=== PATIENT | female | born 1945 | race Caucasian/White ===

== ENCOUNTER → 2019-07-21 08:55 | Outpatient (BNVA) | payer MEDICARE, OTHER, SELFPAY | PROVIDERS: Family Provider Family Medicine; PCP Family Medicine; Visit Provider Otolaryngology | DX: H92.01 Otalgia, right ear (principal); H93.11 Tinnitus, right ear; H69.81 Other specified disorders of Eustachian tube, right ear; H91.91 Unspecified hearing loss, right ear; J30.9 Allergic rhinitis, unspecified; J34.2 Deviated nasal septum; J34.3 Hypertrophy of nasal turbinates | CPT/HCPCS: 96372; 99214 ==

== ENCOUNTER 2019-10-14 11:30 | Outpatient (CLI) | payer MEDICARE, OTHER, SELFPAY ==
--- NOTE | 2019-10-14 11:39 | CT_ITS ---
WS: [id number] CT ABDOMEN AND PELVIS WITH CONTRAST HISTORY: ABDOMINAL PAIN LLQ TECHNIQUE: Imaging performed of the abdomen and pelvis with IV contrast. Single phase imaging of the abdomen. Coronal and sagittal reformats are submitted. All CT scans at [facility] use at least one of these dose optimization techniques: automated exposure control; mA and/or kV adjustment per patient size (includes targeted exams where dose is matched to clinical indication); or iterativ e reconstruction. IV CONTRAST: Omnipaque 300; 95 mL IV. Oral contrast: No DLP: 1156.63 mGycm COMPARISON: 08/26/2018 Lower thorax: Dependent changes at the lung bases. No pulmonary nodule or mass. Mild cardiomegaly. Sm all hiatal hernia. Liver/biliary system: Normal size with no intrahepatic dilatation. Gallbladder: Prior cholecystectomy. Pancreas: Normal. Spleen: Normal size spleen with granulomata. Adrenal glands: Normal. Right kidney: Cortical cyst upper pole. Well-circumscribed hypoechoic mass appears more solid in the inferior medial pole of the RIGHT kidney measuring 12 x 12 mm. This mass was also present on the stud y of 08/26/2018 with very slight progression. Mass appears slightly more solid than on the prior study. Left kidney: 2 to 3 mm cortical hypodensity mid kidney. Aorta: Mild atherosclerosis with no aneurysm. Lymphadenopathy: None. Free fluid: None. GI tract: The appendix is not directly seen. No GI tract obstruction. Numerous diverticula in the sig moid colon without acute inflammation. Abdominal wall: Umbilical hernia contains fat only. Pelvis: Prior hysterectomy. No pelvic mass or adenopathy. Bones: Mild increase in lumbar lordosis. CT/CT abdomen pelvis w con* [id number] IMPRESSION: 1. Mild distal colon diverticulosis without acute diverticulitis. 2. No GI tract obstruction or ascites. 3. Prior cholecystectomy. 4. Indeterminate renal mass from the inferior medial RIGHT kidney. Appears mor e solid than on prior studies. Recommend 6-[address] follow-up to evaluate for continued stability. Study should be obtained with and without IV contrast to evaluate for enhancement.
[2019-10-14 12:40] LABS: Blood Urea Nitrogen 11 mg/dL (8-23)
[2019-10-14] MEDS: iohexol 300 mg/mL 100 mL Btl IV (12:47)
== END 2019-10-14 11:31 | disposition home or self-care (01) ==
LOC: RADWPI 11:34
PROVIDERS: Family Provider Family Medicine; PCP Family Medicine; Visit Provider Family Medicine
DX: R10.32 Left lower quadrant pain (principal); K57.90 Diverticulosis of intestine, part unspecified, without perforation or abscess without bleeding; N28.89 Other specified disorders of kidney and ureter
CPT/HCPCS: 74177; 82565; 84520; Q9967

== ENCOUNTER 2020-01-25 14:55 | Outpatient (CLI) | payer MEDICARE, OTHER, SELFPAY ==
--- NOTE | 2020-01-25 15:09 | MR_ITS ---
WS: [id number] MRI RIGHT KNEE NONCONTRAST TECHNIQUE: Axial PD, coronal PD fat sat, coronal PD, sagittal PD, and sagittal PD fat-sat images obta ined. CLINICAL INFORMATION: RIGHT MEDIAL MENISCUS TEAR/ACUTE KNEE PAIN COMPARISON: None. FINDINGS: Distal quadriceps and patella tendons are intact. Normal ACL and PCL. Chronic thinning of the medial and lateral meniscus. Complex tear involving the lateral meniscus with blunting of the anterior and p osterior horn. Associated edema along the anterior horn. Meniscal tear extends to the meniscal root. Medial meniscus appears preserved. No acute appearing medial meniscal tears. 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 Small amount of subchondral edema. Hypertrophic patella. M edial and lateral collateral ligaments are intact. Tiny popliteal cyst measuring 1.6x0.8 cm. MR/MR knee RT wo con* [id number] IMPRESSION: 1. Anterior and posterior cruciate ligaments are intact. 2. Complex tear involving the lateral meniscus with blunting of the anterior a nd posterior horns extending to the meniscal root. Associated edema. 3. No acute medial meniscal tears. 4. Advanced chondromalacia patella with subchondral edema. 5. Tiny popliteal cyst.
== END 2020-01-25 14:56 | disposition home or self-care (01) ==
LOC: RADWPI 14:59
PROVIDERS: PCP Family Medicine; Visit Provider Family Medicine
DX: M25.561 Pain in right knee; R60.0 Localized edema; S83.271A Complex tear of lateral meniscus, current injury, right knee, initial encounter; M22.41 Chondromalacia patellae, right knee; M71.21 Synovial cyst of popliteal space [Baker], right knee; X58.XXXA Exposure to other specified factors, initial encounter
CPT/HCPCS: 73721

== ENCOUNTER 2020-04-21 06:00 | Outpatient (RCR) | payer MEDICARE, OTHER, SELFPAY | END 2020-04-21 23:59 | disposition home or self-care (01) | LOC: SPT 06:00 | PROVIDERS: PCP Family Medicine; Referring Provider Orthopaedic Surgery; Visit Provider Orthopaedic Surgery | DX: Z47.1 Aftercare following joint replacement surgery (principal); Z96.651 Presence of right artificial knee joint | CPT/HCPCS: 97110; 97161 ==

== ENCOUNTER 2020-04-24 06:00 | Outpatient (RCR) | payer MEDICARE, OTHER, SELFPAY | END 2020-05-23 23:59 | disposition home or self-care (01) | LOC: SPT 06:00 | PROVIDERS: PCP Family Medicine; Referring Provider Orthopaedic Surgery; Visit Provider Orthopaedic Surgery | DX: Z47.1 Aftercare following joint replacement surgery (principal); Z96.651 Presence of right artificial knee joint | CPT/HCPCS: 97110 ==

== ENCOUNTER 2020-05-24 06:00 | Outpatient (RCR) | payer MEDICARE, OTHER, SELFPAY | END 2020-06-23 23:59 | disposition home or self-care (01) | LOC: SPT 06:00 | PROVIDERS: PCP Family Medicine; Referring Provider Orthopaedic Surgery; Visit Provider Orthopaedic Surgery | DX: Z47.1 Aftercare following joint replacement surgery (principal); Z96.651 Presence of right artificial knee joint | CPT/HCPCS: 97110 ==

== ENCOUNTER 2020-09-14 12:43 | Outpatient (CLI) | payer MEDICARE, OTHER, SELFPAY ==
--- NOTE | 2020-09-14 12:59 | CT_ITS ---
WS: [id number] NONCONTRAST CT OF THE FACIAL BONES AND PARANASAL SINUSES. TECHNIQUE: Noncontrast facial bones with coronal and sagittal reformatted images. CLINICAL INFORMATION: SINUS PAIN, HEADACHE ATYPICAL, FIBROMYALGIA COMPARISON: None. DLP: 868.88 mGycm (accession [id number]), 308.07 mGycm (accession [id number]) All CT scans at [facility] use at least one of these dose optimization techniques: automat ed exposure control; mA and/or kV adjustment per patient size (includes targeted exams where dose is matched to clinical indication); or iterative reconstruction. FINDINGS: Mastoid air cells are well aerated. Mild mucosal thickening with small retention cyst left maxillary sinus measuring 8 mm. Hypoplastic left maxillary sinus. Right ostiomeatal unit is patent. Hypoplastic frontal sinuses. Ethmoid air cells well aerated. Minimal nasal septal deviation convex left. This me asures 2-3 mm. Normal visualized posterior nasopharynx. Normal soft tissues. Anterior nasal bones are normal. Betty l pterygoid plates. Degenerative arthritis both temporal mandibular joints. Normal zygoma. Lateral or bits are normal in appearance. Anterior nasal bones are normal. Normal C1-2 articulation. Right orbit is normal in appearance. Normal lamina papyracea. Inferior orbits are normal in appearanc e. CT/CT facial bones wo con* [id number] IMPRESSION: 1. No acute facial fractures. 2. Hypoplastic left maxillary sinus with a small retention cyst. 3. Paranasal sinuses and mastoid air cells well aerated.
--- NOTE | 2020-09-14 12:59 | CT_ITS ---
WS: [id number] NONCONTRAST CT OF THE FACIAL BONES AND PARANASAL SINUSES. TECHNIQUE: Noncontrast facial bones with coronal and sagittal reformatted images. CLINICAL INFORMATION: SINUS PAIN, HEADACHE ATYPICAL, FIBROMYALGIA COMPARISON: None. DLP: 868.88 mGycm (accession [id number]), 308.07 mGycm (accession [id number]) All CT scans at [facility] use at least one of these dose optimization techniques: automat ed exposure control; mA and/or kV adjustment per patient size (includes targeted exams where dose is matched to clinical indication); or iterative reconstruction. FINDINGS: Mastoid air cells are well aerated. Mild mucosal thickening with small retention cyst left maxillary sinus measuring 8 mm. Hypoplastic left maxillary sinus. Right ostiomeatal unit is patent. Hypoplastic frontal sinuses. Ethmoid air cells well aerated. Minimal nasal septal deviation convex left. This me asures 2-3 mm. Normal visualized posterior nasopharynx. Normal soft tissues. Anterior nasal bones are normal. Betty l pterygoid plates. Degenerative arthritis both temporal mandibular joints. Normal zygoma. Lateral or bits are normal in appearance. Anterior nasal bones are normal. Normal C1-2 articulation. Right orbit is normal in appearance. Normal lamina papyracea. Inferior orbits are normal in appearanc e. CT/CT sinus wo con* [id number] IMPRESSION: 1. No acute facial fractures. 2. Hypoplastic left maxillary sinus with a small retention cyst. 3. Paranasal sinuses and mastoid air cells well aerated.
== END 2020-09-14 12:44 | disposition home or self-care (01) ==
LOC: RADWPI 12:49
PROVIDERS: PCP Family Medicine; Visit Provider Family Medicine
DX: R51.9 Headache, unspecified (principal); M79.7 Fibromyalgia; M27.40 Unspecified cyst of jaw
CPT/HCPCS: 70486

== ENCOUNTER → 2022-05-01 08:42 | Outpatient (BNVA) | payer MEDICARE, OTHER, SELFPAY | PROVIDERS: PCP Family Medicine; Visit Provider Registered Nurse | DX: J18.9 Pneumonia, unspecified organism (principal) | CPT/HCPCS: 80053; 85025; 87400 ==

== ENCOUNTER → 2022-06-06 09:05 | Outpatient (BNVA) | payer MEDICARE, OTHER, SELFPAY | PROVIDERS: PCP Family Medicine; Visit Provider Registered Nurse | DX: R39.9 Unspecified symptoms and signs involving the genitourinary system (principal); R73.9 Hyperglycemia, unspecified; R81 Glycosuria; N39.0 Urinary tract infection, site not specified | CPT/HCPCS: 80053; 81000; 83036 ==

== ENCOUNTER → 2022-06-11 09:28 | Outpatient (BNVA) | payer MEDICARE, OTHER, SELFPAY | PROVIDERS: PCP Family Medicine; Visit Provider Registered Nurse | DX: N39.0 Urinary tract infection, site not specified (principal); E11.9 Type 2 diabetes mellitus without complications; Z71.3 Dietary counseling and surveillance | CPT/HCPCS: 81000 ==

== ENCOUNTER 2022-09-25 06:50 | Outpatient (CLI) | payer MEDICARE, OTHER, SELFPAY ==
--- NOTE | 2022-09-25 | ECG_ITS ---
[facility] Test Date: 2022-09-25 Pat Name: Wilda Bailey Department: Room: Gender: Female Activity Leader: : 1945 Requested By: Tita Novoa Order Number: [id number] Magaña MD: Mario Robin M.D. Interpretive Statements NAME OF STUDY: LEXISCAN SESTAMIBI STRESS TEST INDICATION: [Chest Pain, LBBB, ] Procedure: At the baseline, the blood pressure was 143/76 mmHg with a heart rate of 94 bpm. The electrocardiogram showed normal sinus rhythm,left bundle branch block with normal ST and T's. The Lexiscan was infused over a period of 20 seconds. A total of 0.4 mg of Lexiscan was infused. The stress phase was continued for a total of 5 minutes. Heart rate was at the end of stress phase was 110 bpm and a blood pressure of 117/70 mmHg. The EKG at the peak infusion revealed normal sinus rhythm with no significant ST-T wave changes. Sestamibi was injected 20 seconds after the Lexiscan infusion. Blood pressure at the end of recovery phase was 112/70 mmHg with a heart rate of 96 bpm. Conclusion: 1. Normal EKG response to Lexiscan infusion 2. No Lexiscan induced chest pain or cardiac arrhythmia. 3. Normal blood pressure and heart rate response. 4. Sestamibi/sestamibi perfusion scan pending; see separate report. Electronically Signed On 09-30-2022 15:04:36 CDT by Mario Robin M.D. [id number]
[2022-09-25 07:07] VITALS: BMI 26.8
--- NOTE | 2022-09-25 07:43 | NMCV_ITS ---
NM valentina perf SPECT r/s* [id number] Wilda Bailey Age: 76 Gender: F : 1945 Exam Date: 09/25/2022 07:43 Ordering Phys: Tita NovoaP MERCHANDISE SHOPPER Technologist: JASON Kruger Exam Location: [facility] Indications: CHEST PAIN STRESS TEST Please see separate stress test report in [facility] for full findings IMAGE PROTOCOL Rest/Stress 1 Lexiscan Day Radiopharmaceutical Dose (mCi) Administration Site Administered by Rest: Tc-99m 10.6 IV JASON Kruger Sestamibi Stress:Tc-99m 32.9 IV JASON Goodman Sestamibi Rest: 25-Sep-2022 60 Discovery 630 Stress: 25-Sep-2022 30 Discovery 630 0.4mg Lexiscan. Supine position only as patient was unable to lay prone. SPECT RESULTS Technical Quality: Excellent Raw Data Analysis: Normal Image Corrections: No attenuation or motion correction applied Summed Stress Score: 11 Summed Rest Score: 4 Summed Difference Score: 7 PERFUSION FINDINGS There is a medium sized, partially reversible perfusion defect noted in the apical, inferolateral and apical inferior montero. 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 FUNCTIONAL RESULTS (calculated via Gated SPECT) Stress Image LV EF (%): 52 Stress EDV (mL):137 TID: 1.01 Stress ESV (mL):66 FUNCTIONAL FINDINGS: There is normal left ventricular systolic function. IMPRESSIONS 1. Abnormal myocardial perfusion imaging with medium sized areas of prior infarct with significant skye-infarct ischemia seen in RCA and Left circumflex arteries. 2. LV systolic function is normal Mario Robin MD (Electronically Signed) Final Date: 29 September 2022 13:42 S
[2022-09-25] MEDS: regadenoson 0.4 Mg/5 ml Syringe IVP (09:25)
[2022-09-25 09:44] VITALS: BP 112/70; PULSE 97
== END 2022-09-25 06:51 | disposition home or self-care (01) ==
LOC: CDL 06:53
PROVIDERS: PCP Registered Nurse; Visit Provider Registered Nurse
DX: R07.9 Chest pain, unspecified (principal); I44.7 Left bundle-branch block, unspecified
CPT/HCPCS: 36415; 78452; 93017; 96374; A9500; J2785

== ENCOUNTER 2022-10-11 06:52 | Outpatient (CLI) | payer MEDICARE, OTHER, SELFPAY ==
--- NOTE | 2022-10-11 07:00 | USCV_ITS ---
Wilda Bailey Age: 76 Gender: F : 1945 Exam Date: 10/11/2022 07:08 Ordering Phys: Tita NovoaP EYE CLINIC MANAGER Technologist: Mecca Peacock Exam Location[place] [facility] [place] Indication: 2nd degree block BP: 140 / 70 HR: 76 Rhythm: Sinus Technical Quality: Adequate MEASUREMENTS (Male / Female) Normal Values 2D ECHO LV Diastolic Diameter PLAX 4.9 cm 4.2 - 5.9 / 3.9 - 5.3 cm LV Systolic Diameter PLAX 3.7 cm LV Chamber Size 3.1 cm IVS Diastolic Thickness 1.3 cm 0.6 - 1.0 / 0.6 - 0.9 cm IVS Systolic Thickness 1.7 cm LVPW Diastolic Thickness 1.4 cm 0.6 - 1.0 / 0.6 - 0.9 cm LVPW Systolic Thickness 1.4 cm RV Chamber Size 2.3 cm LVOT Diameter 2.0 cm LV Ejection Fraction 2D Teich 49.3 % LV Ejection Fraction MOD 2C 38.7 % LV Ejection Fraction 2C AL 42.3 % LA Diameter 2.9 cm LA Width 2.8 cm LA Height 5.0 cm RA Width 2.9 cm RA Height 3.8 cm Aorta at Sinotubular Diameter 2.6 cm IVC Diameter 1.4 cm M-MODE Aortic Annulus Diameter 3.3 cm LA Ao Ratio MM 1.0 MV E Point Septal Separation 1.0 cm DOPPLER AV Peak Velocity 137.0 cm/s LVOT Peak Velocity 83.0 cm/s AV Area Cont Eq vti 2.3 cm squared AV Area Cont Eq pk 2.0 cm squared MV Peak Velocity 108.0 cm/s MV Area PHT 5.0 cm squared Mitral E to A Ratio 1.4 MV E' Velocity 101.7 cm/s Mitral E to LV E' Septal Ratio 1.0 TR Peak Velocity 107.1 cm/s TR Peak Gradient 4.6 mmHg TR Mean Velocity 75.1 cm/s TR Mean Gradient 2.6 mmHg TR Velocity Time Integral 27.9 cm TV Peak E Velocity 56.0 cm/s Right Atrial Pressure 5.0 mmHg Pulmonary Artery Systolic Pressu 9.6 mmHg RV Acceleration Time 0.1 s RV Ejection Time 0.4 s RV AcT/ET 0.3 FINDINGS Left Ventricle Normal LV size with a diminished ejection fraction of 42%.abnormal septal motion consistent with conduction abnormality. Mild diffuse hypokinesia of the inferior wall. Mild to moderate concentric left-ventricular hypertrophy. Right Ventricle The right ventricle is normal in size and function. Right Atrium The right atrium is normal in size. Left Atrium Mildly increased left atrial size. Mitral Valve Thickened mitral valve. Trace mitral valve regurgitation. Aortic Valve Thickened aortic valve. Tricuspid Valve No gross abnormalities noted Pulmonic Valve No gross abnormalities noted Pericardium Normal pericardium without effusion. Aorta Normal ascending aorta dimension. IVC Normal IVC dimension with >50% respiratory change of the inferior vena cava. CONCLUSIONS Normal LV size with a diminished ejection fraction of 42%. Abnormal septal motion consistent with conduction abnormality. Mild diffuse hypokinesia of the inferior wall. Mild to moderate concentric left-ventricular hypertrophy. Thickened mitral valve. Trace mitral valve regurgitation. Mildly increased left atrial size. There is no pericardial effusion. There are no intracardiac masses. No similar previous studies are available for comparison Dr Addison Garibay MD FACC (Electronically Signed) Final Date: 13 October 2022 15:39 S
== END 2022-10-11 06:53 | disposition home or self-care (01) ==
LOC: RAD 06:55
PROVIDERS: PCP Registered Nurse; Visit Provider Registered Nurse
DX: I44.7 Left bundle-branch block, unspecified (principal); R06.02 Shortness of breath; I05.9 Rheumatic mitral valve disease, unspecified
CPT/HCPCS: 80053; 80061; 81000; 83036; 83880; 85025; 93306

== ENCOUNTER → 2022-10-23 13:22 | Outpatient (BNVA) | payer MEDICARE, OTHER, SELFPAY | PROVIDERS: PCP Registered Nurse; Visit Provider Internal Medicine | DX: R07.9 Chest pain, unspecified (principal); I44.7 Left bundle-branch block, unspecified; R06.02 Shortness of breath; R94.39 Abnormal result of other cardiovascular function study | CPT/HCPCS: 93005; 99204 ==

== ENCOUNTER → 2022-11-28 09:46 | Outpatient (BNVA) | payer MEDICARE, OTHER, SELFPAY | PROVIDERS: PCP Registered Nurse; Visit Provider Registered Nurse | DX: R10.9 Unspecified abdominal pain (principal); R39.9 Unspecified symptoms and signs involving the genitourinary system | CPT/HCPCS: 81000 ==

== ENCOUNTER 2022-12-11 05:59 | Outpatient (CLI) | payer MEDICARE, OTHER, SELFPAY ==
[2022-12-11] VITALS (19 sets, daily range): BP systolic 114–147; BP diastolic 52–95; PULSE 58–75; RESP 14–21; TEMP 36.4; O2SAT 95–100; BMI 26.4
--- NOTE | 2022-12-11 06:00 | XACV_ITS ---
Exam Room: 2 Ht: 178 cm Wt: 83 kg BSA: 2.04 m2 Gender: Female : 1945 Any Known Allergies: No known allergies Exam Priority: Routine Procedure(s): Procedure Description: Diagnostic procedure Procedure Description: Left Heart Catheterization Procedure Description: Coronary Angiography Diagnostic Cath Status: Elective Diagnostic Findings * INDICATION: 77-year-old woman with past medical history of diabetes who was referred to us for chest pressure evaluation. 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 * No significant disease noted in the Left Main, Left Anterior Descending, Right, or Circumflex coronary arteries. * Coronary angiography shows right dominance. Conclusions 1. No significant disease noted in the Left Main, Left Anterior Descending, Right, or Circumflex coronary arteries. Recommendations * Aggressive risk factor modification. * Outpatient cardiology follow up in 4 weeks. Interventional RX Recommendation: medical therapy and/or counseling Diagnostic RX Recommendation: medical therapy and/or counseling Anticoagulation: Heparin Pressures Phase:Rest AO : 175 / 95 ( 129 ) @ 8:24:00 AM 113 / 82 ( 99 ) @ 8:27:00 AM 146 / 72 ( 102 ) @ 8:33:00 AM 146 / 73 ( 103 ) @ 8:33:00 AM LV : 148 / 0 / 16 @ 8:33:00 AM 144 / -2 / 14 @ 8:33:00 AM Valves Phase:DefaultPhase AV : 0.0 @ 7:43:11 AM 0.0 @ 7:43:11 AM AV Mean Gradient: 0.0 @ 7:43:11 AM 0.0 @ 7:43:11 AM Clinical Evaluation EBL: 5mL-10mL Procedural Details Procedure Consent Obtained. Admit Source: Out Patient. Pre-Procedure Time Out. Identified patient by full name and date of as verbalized by the patient/guarantor. Does the consent match the physician's order: Yes. Accurate & Complete Informed Consent: Yes. Inpatient/Outpatient History & Physical on Chart: Yes. If H&P is completed, is and addenduem needed: No; If yes, is the addendum complete: N/A. Visualize and Verify Site with Patient/Guarantor: N/A. Relevant Radiology Images available: Yes. The risks, benefits, and alternatives of sedation and/or procedure were discussed by physician. The patient agrees to continue. Procedure started. [facility] Clinical Fraility Score: 3: Managing Well. Automotive Parts Person Indications: Worsening Angina. Chest Pain Symptom Assessment: Typical Angina Symptoms. Correct patient, site and procedure confirmed by cath team. Current diagnosis: Chest Pain. PERRLA. Strong, equal hand vp of customer experience strategy bilaterally. Lungs clear x 5 lobes. IV Site on Arrival: 20 gauge in the left anticubital. IV Fluids: 0.9% NaCl at KVO. 0 mL infused prior to metallurgical lab technician. Pre Procedural Pulses: bilateral radial was 3+. Oxygen started at 2liters/min via nasal canula. right groin was prepped with chloroprep then draped in the usual sterile fashion. right radial was prepped with chloroprep then draped in the usual sterile fashion. Physician notified. Physician arrived. Physician scrubbed in. Immediate Pre-Procedure Time Out. Correct Patient: Yes; Correct Procedure: Yes; Correct Site: Yes; Correct Patient Position: Yes; Correct Supplies: Yes; Dried Flammable Prep: Yes; Blood Products Available: N/A;. Lidocaine 1% infiltrated to the right radial. Arterial access obtained. A 5 panamanian TIG catheter in over wire. Multiple views taken of left coronary artery. Catheter redirected to the RCA. Multiple views taken of right coronary artery. Catheter removed over the exchange wire. A 5 panamanian Angled Pig catheter in over wire. EDP Sample taken: LV 148/-1,16; HR: 73 BPM; SpO2: 95%. Pullback taken: LV 144/-3,14; AO 146/72(102); Mean: 0mmHg, Peak to Peak: 0mmHg, SEP: 9sec/min; HR: 65 BPM; SpO2: 96%. Catheter removed over the exchange wire. A TR Band was successful obtaining hemostatsis at the Right Radial artery insertion site. Post Procedure: Pulses reassessed and unchanged. PERRLA. Strong, equal hand vp of customer experience strategy bilaterally. Medication's Wasted: Lidocaine 1% = 2 mL. Medication's Wasted: Nitro = 49.8 mg. Medication's Wasted: Heparin = 1000 units. Medication's Wasted: Other = Fentanyl 50 mcg. Total IV fluids: 26 mL. Post-op diagnosis: Non obstructive CAD. Complications: none. Estimated blood loss: 5mL-10mL. Responsiveness - Normal response to verbal stimuli; alert and oriented, PERRLA. Airway - Unaffected, no intervention required; spontaneous ventilation. Circulation: W/N/L, pulses unchanged. Nausea/Vomiting: No. Procedure completed. Patient transferred by wheelchair to CPRU. Vital chart was stopped. Access Site Site: Right Radial artery Sheath Size: 6 Fr Hemostasis Method: TR Band Hemostasis Success: Successful Procedure Medications Start: 7:20 AM Stop: 7:20 AM Medication: Versed Amount: 1 mg Route: I.V. Start: 7:20 AM Stop: 7:20 AM Medication: Fentanyl Amount: 50 mcg Route: I.V. Start: 7:23 AM Stop: 7:23 AM Medication: Nitrogylcerin Amount: 200 mcg Route: I.A. Start: 7:23 AM Stop: 7:23 AM Medication: Versed Amount: 1 mg Route: I.V. Start: 7:24 AM Stop: 7:24 AM Medication: Heparin Amount: 5000 units Route: I.V. I, the attending physician, have reviewed and verified all procedure medications. Yes, all medications given per verbal order History/Risk Factors Hypertension: No Dyslipidemia: No Peripheral Arterial Disease (PAD): No Myocardial Infarction (SC): No Obesity: No Renal Disease: No Tobacco Use: Never Prior Interventions PCI: No CABG: No Valve Surgery: No Report Signatures Finalized by Mario Robin MD on 12/15/2022 06:30 PM
[2022-12-11 06:29] LABS: Basophils # 0.1 10^3/uL (0.0-0.1); Basophils % 0.9 %; Eosinophils # 0.6 10^3/uL (0.0-0.8); Eosinophils % 7.3 %; Hematocrit 44.8 % (37.0-47.0); Hemoglobin 14.4 g/dL (11.5-15.3); Lymphocytes # 3.4 10^3/uL (0.8-4.8); Lymphocytes % 39.8 %; Mean Corpuscular HGB Conc 32.1 g/dL (30.0-36.0); Mean Corpuscular Hemoglobin 29.3 pg (28.0-34.0); Mean Corpuscular Volume 91.2 fl (81-99); Mean Platelet Volume 10.8 fL (7.4-10.4); Monocytes # 0.6 10^3/uL (0.2-0.9); Monocytes % 7.6 %; Neutrophils % 43.9 %; Nucleated Red Blood Cells % 0 %; Platelet Count 177 10^3/cmm (130-400); Red Blood Count 4.91 10^6/uL (4.1-5.3); Red Cell Distribution Width 14.3 % (12.1-15.1); White Blood Count 8.4 10^3/uL (4.0-10.0)
[2022-12-11] MEDS: diphenhydrAMINE 50 mg Capsule PO (06:43)
[2022-12-11 06:47] LABS: Anion Gap 16.2 (5-19); Blood Urea Nitrogen 12 mg/dL (8-23); Calcium 9.7 mg/dL (8.5-10.5); Carbon Dioxide 24 mmol/L (22-29); Chloride 105 mmol/L (98-107); Glucose 105 mg/dL (65-115); Osmolality Calculated 292 mOsm/kg (285-295); Potassium 4.2 mmol/L (3.5-5.1); Sodium 141 mmol/L (136-145)
--- NOTE | 2022-12-11 07:13 | P.HP_ITS ---
Same Day Surgery H&P Indication for Procedure/HPI DATE OF PROCEDURE: December 11, 2022 CHIEF COMPLAINT/INDICATIONFOR SURGICAL PROCEDURE: Chest pain/abnormal stress test PREOP DIAGNOSIS: Chest pain/abnormal stress test PLANNED PROCEDURE: Operation Date: 12/11/22 07:00 Proposed Procedures p [facility] [id number],R07.9, I44.7, R94.39(Left) - Mario Robin M.D Possible percutaneous coronary intervention 77-year-old woman with past medical history of diabetes who was referred to us for chest pressure evaluation. 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 She is here for coronary angiogram with possible percutaneous coronary intervention. Risks and benefits of the procedure have been discussed with the patient. She understands the risks and benefits and wants to proceed. 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) of neck Surgical History (Updated 07/16/22 @ 12:54 by ZAIRA Black) H/O: hysterectomy History of knee replacement procedure of right knee Hx of cholecystectomy S/p bilateral myringotomy with tube placement Family History (Updated 07/17/19 @ 10:42 by Christelle Miller LPN) No pertinent family history Social History Smoking and tobacco status: never smoked Alcohol intake: never Substance/Drug Use: never Adopted: No Caregiver/support person: No Lives independently: No Household members: family Marital status: / service: No Current occupational status: retired Sexually active: No Do you think of yourself as: Straight/Heterosexual Current gender identity: Female Pertinent Exam Findings alert, oriented x 3, clear to auscultation bilaterally and regular rate & rhythm Conscious Sedation Assessment PATIENT ASSESSED PRIOR TO SEDATION, WITH NO CHANGE NOTED: Yes AIRWAY EVAL/ANESTHESIA PLAN: normal airway, see other exam findings, ASA III, Local Anesthesia, Risks, benefits & alternatives of sedation and/or procedure discussed and Patient agrees to continue as planned ADDITIONAL INFORMATION: Moderate sedation Recommendations Surgery/Procedure today (Left heart cath with possible percutaneous coronary intervention) Coding Level of Care Code Acute Code for Chg Fwd Diagnoses
--- NOTE | 2022-12-11 07:45 | SUR.PHASEII ---
POST CATH NOTE Patient received from label printer. Status post cardiac cath via the right radial approach. TR band in place with no hematoma formation noted. Patient given verbal post cath instructions- she understoood well at this time. Call light in reach. Informed to call for needs.
--- NOTE | 2022-12-11 07:50 | SUR.PHASEII ---
POST CATH IV FLUID RATE 100 ML/HR OF 0.9% NORMAL SALINE. INFUSING WITH NO DIFFICULTY.
--- NOTE | 2022-12-11 08:25 | SUR.PHASEII ---
Family updated. Currently at bedside.
--- NOTE | 2022-12-11 08:54 | SUR.PHASEII ---
TR Band deflation began. Post procedure instrctions given to patient/family. They understood well.
== END 2022-12-11 12:14 | disposition home or self-care (01) ==
PROVIDERS: PCP Registered Nurse; Visit Provider Internal Medicine
DX: R07.9 Chest pain, unspecified (principal); R94.39 Abnormal result of other cardiovascular function study; I44.7 Left bundle-branch block, unspecified
CPT/HCPCS: 36415; 80048; 85025; 93458; 96361; 96365; 99152; 99153; C1769; C1887; C1894; J1644; J2250; J3010; J3490; J7030; Q0163; Q9967

== ENCOUNTER → 2022-12-26 10:18 | Outpatient (BNVA) | payer MEDICARE, OTHER, SELFPAY | PROVIDERS: PCP Registered Nurse; Visit Provider Nurse Practitioner Family | DX: R07.9 Chest pain, unspecified (principal) | CPT/HCPCS: 36415; 80048; 99214 ==

== ENCOUNTER → 2023-03-11 12:34 | Outpatient (BNVA) | payer MEDICARE, OTHER, SELFPAY | PROVIDERS: PCP Registered Nurse; Visit Provider Internal Medicine Cardiovascular Disease | DX: R07.9 Chest pain, unspecified (principal); R06.02 Shortness of breath; I44.7 Left bundle-branch block, unspecified; M79.7 Fibromyalgia; E11.9 Type 2 diabetes mellitus without complications; Z79.84 Long term (current) use of oral hypoglycemic drugs | CPT/HCPCS: 99214 ==

== ENCOUNTER → 2023-04-01 09:37 | Outpatient (BNVA) | payer MEDICARE, OTHER, SELFPAY | PROVIDERS: PCP Registered Nurse; Visit Provider Registered Nurse | DX: B34.8 Other viral infections of unspecified site (principal) | CPT/HCPCS: 85025 ==

== ENCOUNTER → 2023-05-28 11:28 | Outpatient (BNVA) | payer MEDICARE, OTHER, SELFPAY | PROVIDERS: PCP Registered Nurse; Visit Provider Registered Nurse | DX: R68.89 Other general symptoms and signs (principal); Z11.52 Encounter for screening for COVID-19; J20.6 Acute bronchitis due to rhinovirus | CPT/HCPCS: 87400; 87426 ==

== ENCOUNTER → 2023-08-13 09:03 | Outpatient (BNVA) | payer MEDICARE, OTHER, SELFPAY | PROVIDERS: PCP Registered Nurse; Visit Provider Registered Nurse | DX: N39.0 Urinary tract infection, site not specified (principal) | CPT/HCPCS: 81000; 87086 ==

== ENCOUNTER → 2023-08-19 11:28 | Outpatient (BNVA) | payer MEDICARE, OTHER, SELFPAY | PROVIDERS: PCP Registered Nurse; Visit Provider Registered Nurse | DX: R30.0 Dysuria (principal); R39.9 Unspecified symptoms and signs involving the genitourinary system | CPT/HCPCS: 81000; 87086 ==

== ENCOUNTER → 2023-08-28 11:36 | Outpatient (BNVA) | payer MEDICARE, OTHER, SELFPAY | PROVIDERS: PCP Registered Nurse; Visit Provider Registered Nurse | DX: E11.9 Type 2 diabetes mellitus without complications (principal); M79.7 Fibromyalgia; M19.90 Unspecified osteoarthritis, unspecified site | CPT/HCPCS: 80053; 80061; 82306; 82607; 83036; 85025 ==

== ENCOUNTER → 2024-03-25 08:38 | Outpatient (BNVA) | payer MEDICARE, OTHER, SELFPAY | PROVIDERS: PCP Registered Nurse; Visit Provider Registered Nurse | DX: J06.9 Acute upper respiratory infection, unspecified (principal) | CPT/HCPCS: 87400; 87426 ==

== ENCOUNTER → 2024-08-19 14:44 | Outpatient (BNVA) | payer MEDICARE, OTHER, SELFPAY | PROVIDERS: PCP Registered Nurse; Visit Provider Registered Nurse | DX: R39.9 Unspecified symptoms and signs involving the genitourinary system (principal) | CPT/HCPCS: 81000; 87086 ==

== ENCOUNTER → 2024-08-20 07:55 | Outpatient (BNVA) | payer MEDICARE, OTHER, SELFPAY | PROVIDERS: PCP Registered Nurse; Visit Provider Registered Nurse | DX: R60.0 Localized edema (principal); I10 Essential (primary) hypertension | CPT/HCPCS: 80048; 83880; 85025 ==

== ENCOUNTER 2024-09-01 09:14 | Outpatient (CLI) | payer MEDICARE, OTHER, SELFPAY ==
--- NOTE | 2024-09-01 09:30 | CT_ITS ---
WS: [id number] CT ABDOMEN WITH AND WITHOUT CONTRAST HISTORY: N28.89 - Other specified disorders of kidney and ureter Multiphase CT abdomen. Renal mass protocol. Oral contrast has not been provided. Coronal and sagittal reformats are submitted. All CT scans at [facility] use at least one of these dose optimization techniques: automated exposure control; mA and/or kV adjustment per patient size (includes targeted exams where dose is matched to clinical indication); or iterative reconstruction. IV CONTRAST: Omnipaque 350; 100 mL IV. Oral contrast: No DLP: 1049.23 mGy.cm COMPARISON: CT 10/14/2019 Lower thorax: Lung bases are clear. Heart is normal size. Small hiatal hernia. Liver/biliary system: Normal size liver with tricuspid regurgitation into the hepatic veins. No intrahepatic duct dilatation. Normal portal vein. Gallbladder: Prior cholecystectomy. Pancreas: There are 2 adjacent small round cysts associated with the pancreatic tail measuring up to 6 mm each. These were not definitely seen on the prior study. Spleen: Granulomata. Normal size. Adrenal glands: Normal. Right kidney: Normal size RIGHT kidney. Reidentified is a solid-appearing mass along the inferior medial RIGHT kidney. Mass measures 1.6 x 1.7 cm. Hounsfield units are elevated to 30 on the noncontrast study. On the postcontrast examination there is enhancement. Hounsfield units elevated to 57 on the delayed series. Cannot confirm this is a benign cyst. There are a few additional too small to characterize additional cortical hypodensities. There is a small extrarenal pelvis. Normal excretion from the kidney. Left kidney: Normal size. Normal renal enhancement. No mass. Aorta: Mild atherosclerosis aorta. No obstruction of the mesenteric arteries. Lymphadenopathy: None. Free fluid: None. GI tract: As visualized within the upper abdomen no abnormality. Abdominal wall: Very tiny umbilical hernia. Hernia contains fat only. Visualized osseous structures: Degenerative rotary scoliosis of the visualized lumbar spine. Advanced degenerative changes. CT/CT abdomen wo/w con [id number] IMPRESSION: 1. Solid enhancing mass inferior medial RIGHT kidney measures 1.6 x 1.7 cm. Mi nimal increase in size since 2019. Hounsfield units increase after contrast inj ection suggesting this is not a simple benign cyst. 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 Follow-up with urology. 2. Prior cholecystectomy. 3. Distal pancreatic tail cysts x 2 measuring 6 mm. Differential includes IPMN versus serous cystic neoplasm. Consider MRI evaluation in 6 months with and wi thout contrast.
[2024-09-01] MEDS: iohexol 350 mg/mL 500 mL Btl (per mL) IV (09:53)
== END 2024-09-01 09:15 | disposition home or self-care (01) ==
LOC: RAD 09:17
PROVIDERS: PCP Registered Nurse; Visit Provider Registered Nurse
DX: N28.89 Other specified disorders of kidney and ureter (principal); R93.421 Abnormal radiologic findings on diagnostic imaging of right kidney; Z90.49 Acquired absence of other specified parts of digestive tract; K86.2 Cyst of pancreas; K44.9 Diaphragmatic hernia without obstruction or gangrene; R93.89 Abnormal findings on diagnostic imaging of other specified body structures; R93.2 Abnormal findings on diagnostic imaging of liver and biliary tract; D73.89 Other diseases of spleen; I70.0 Atherosclerosis of aorta; M41.86 Other forms of scoliosis, lumbar region; M47.9 Spondylosis, unspecified
CPT/HCPCS: 74170

== ENCOUNTER → 2025-04-06 09:18 | Outpatient (BNVA) | payer MEDICARE, OTHER, SELFPAY | PROVIDERS: PCP Registered Nurse; Visit Provider Registered Nurse | DX: N39.0 Urinary tract infection, site not specified (principal) | CPT/HCPCS: 81000; 85025; 87086 ==

== ENCOUNTER → 2025-04-15 09:58 | Outpatient (BNVA) | payer MEDICARE, OTHER, SELFPAY | PROVIDERS: PCP Registered Nurse; Visit Provider Registered Nurse | DX: N39.0 Urinary tract infection, site not specified (principal) | CPT/HCPCS: 81000; 87086 ==